=== PATIENT | female | born 1995 | race Caucasian/White ===

== ENCOUNTER 2017-07-27 13:29 | Emergency (ER) | payer BC ==
[~2017-07-27] VITALS: Ht 162.6 cm; Wt 54.9 kg
--- NOTE | 2017-07-27 13:45 | NUR ---
MSE DONE BY DR LOMELI IN ROOM 02A. PATIENT A & O X 4.
--- NOTE | 2017-07-27 13:55 | NUR ---
Patient discharged to home in stable conditon. Written and verbal after care instructions given. Patient and grandmother on the phone per patient verbalizes understanding of instructions.
[2017-07-27 13:58] VITALS: BP 125/78
== END 2017-07-27 13:58 | disposition home or self-care (01) ==
LOC: ER 13:29
DX: S01.81XA Laceration without foreign body of other part of head, initial encounter (principal); Z91.013 Allergy to seafood; X58.XXXA Exposure to other specified factors, initial encounter; Y93.89 Activity, other specified; Y92.89 Other specified places as the place of occurrence of the external cause; Y99.8 Other external cause status
CPT/HCPCS: 12013; 99283; A4663